=== PATIENT | male | born 1990 | race Caucasian/White ===

== ENCOUNTER 2016-10-16 12:45 | Emergency (ER) | payer SELFPAY ==
[2016-10-16 12:58] VITALS: BP 128/62
--- NOTE | 2016-10-16 13:19 | UC ---
Elbow Pain - HPI Summary HPI Summary: After receiving some light blows to the area 07/30/16 at work, pt developed swelling at the tip of his R elbow. It was a little sore but he continued with normal life and it started getting better on its own. Now in the last week has noticed some increasing swelling and numbness in his R forearm when he presses on or bumps the R elbow. Pt brings an incident report from work. Now has abrasion on R elbow, but says this is unrelated. - History of Current Complaint Chief Complaint: UCUpperExtremity Stated Complaint: ELBOW INJURY Time Seen by Provider: 10/16/16 12:56 Hx Obtained From: Patient Onset/Duration: Weeks, Traumatic Severity Initially: Mild Severity Currently: Mild Location Of Pain: Is Discrete @ Character: Dull Aggravating Factor(s): Movement - bumping Alleviating Factor(s): Rest Associated Signs And Symptoms: Positive: Swelling - Allergies/Home Medications Allergies/Adverse Reactions: Allergies Allergy/AdvReac Type Severity Reaction Status Date / Time Cefaclor [From [facility]] Allergy Severe Rash Verified 10/16/16 12:51 PMH/Surg Hx/FS Hx/Imm Hx Previously Healthy: Yes - Surgical History Surgical History: Yes Surgery Procedure, Year, and Place: appy. ACL repair, right - Family History Known Family History: Positive: None, Other - Denies any family history of heart disease - Social History Occupation: Employed Full-time Lives: With Family Alcohol Use: Occasionally Substance Use Type: None Smoking Status (MU): Light Every Day Tobacco Smoker Type: Cigarettes Amount Used/How Often: 3-4 daily Length of Time of Smoking/Using Tobacco: 5 YRS When Did the Patient Quit Smoking/Using Tobacco: 10/15/16 Household Exposure Type: Cigarettes - Immunization History Most Recent Influenza Vaccination: no Most Recent Tetanus Shot: Pt is not sure: ? 2009 Review of Systems Constitutional: Negative Skin: Negative Eyes: Negative ENT: Negative Respiratory: Negative Cardiovascular: Negative Gastrointestinal: Negative Genitourinary: Negative Motor: Negative Neurovascular: Negative Musculoskeletal: Arthralgia - R elbow Neurological: Negative Psychological: Negative All Other Systems Reviewed And Are Negative: Yes Physical Exam Triage Information Reviewed: Yes Appearance: Well-Appearing, No Pain Distress, Well-Nourished Vital Signs: Initial Vital Signs Temp 99.2 F 10/16/16 12:52 Pulse 83 10/16/16 12:52 Resp 18 10/16/16 12:52 BP 128/62 10/16/16 12:52 Pulse Ox 98 10/16/16 12:52 Vital Signs Reviewed: Yes Eye Exam: Normal Eyes: Positive: Conjunctiva Clear ENT Exam: Normal ENT: Positive: Normal ENT inspection, Hearing grossly normal, Pharynx normal, TMs normal. Negative: Tonsillar swelling, Tonsillar exudate Dental Exam: Normal Neck exam: Normal Neck: Positive: Supple, Nontender, No Lymphadenopathy Respiratory Exam: Normal Respiratory: Positive: Chest non-tender, Lungs clear, Normal breath sounds, No respiratory distress, No accessory muscle use Cardiovascular Exam: Normal Cardiovascular: Positive: RRR, No Murmur Musculoskeletal Exam: Other - mild tenderness R olecranon, reports numbness and shooting pain with tapping at the ulnar nerve near the lateral epicondyle. Minimal olecranon swelling noted, no erythema. Abrasion to R tip of elbow. Musculoskeletal: Positive: Strength Intact, ROM Intact Neurological Exam: Normal Neurological: Positive: Alert Psychological: Positive: Normal Response To Family Skin Exam: Other - abrasion Elbow Pain Course/Dx - Differential Dx/Diagnosis Provider Diagnoses: R elbow bursitis. R elbow abrasion Discharge - Discharge Plan Condition: Stable Disposition: HOME Prescriptions: Naproxen [Naproxen 500 MG TABS] 500 mg PO BID #14 tab Patient Education Materials: Elbow Bursitis (ED) Referrals: Sagar Foster MD [Medical Doctor] - 5 Days Additional Instructions: As we discussed, I recommend you use a compression sleeve for your elbow while you await follow-up with the orthopedist. Your elbow is not swollen enough for me to drain it today, but the specialist might be able to inject a steroid to help the injury resolve completely. Try to avoid leaning on the elbow while sitting or driving.
== END 2016-10-16 13:16 | disposition home or self-care (01) ==
LOC: UCCORT 12:45
DX: M70.31 Other bursitis of elbow, right elbow (principal); Y93.9 Activity, unspecified; S50.311A Abrasion of right elbow, initial encounter; Z88.8 Allergy status to other drugs, medicaments and biological substances
CPT/HCPCS: 99212; G0463